=== PATIENT | female | born 1955 | race African-American/Black ===

== ENCOUNTER → 2018-11-12 11:16 | Outpatient (CLI) | payer MEDICARE ==
[2018-11-12 12:26] LABS: APTT 30.1 SECONDS (22.8-39.4); INR 1.04 (0.85-1.17); PROTIME 13.1 SECONDS (11.6-15.0)
== END | disposition home or self-care (01) ==
LOC: D.LAB 11:16
PROVIDERS: ATTEND Internal Medicine Hematology & Oncology
DX: L08.9 Local infection of the skin and subcutaneous tissue, unspecified (principal); Z51.11 Encounter for antineoplastic chemotherapy